=== PATIENT | female | born 1995 | race Hispanic/Latino ===

== ENCOUNTER 2021-02-04 22:23 | Inpatient (IN) | payer SELFPAY ==
[~2021-02-04] VITALS: Ht 142.2 cm; Wt 51.2 kg
[2021-02-05] MEDS ORDERED: ZOSYN 3.375GM+NS 50ML 50 ML IV ONE (00:07)
[2021-02-05] MEDS ORDERED: VANCOMYCIN 1GM+NS 250ML 250 ML IV ONE ×2 (00:07→19:28)
[2021-02-05] MEDS ORDERED: KETOROLAC TROMETHAMINE 30MG/ML ONE (00:08)
[2021-02-05] MEDS ORDERED: ACETAMINOPHEN 325 MG TAB ONE (00:08)
[2021-02-05 00:47] LABS: BASOPHILS % (AUTO) 0.3 % (0.0-5.0); EOSINOPHILS % (AUTO) 2.1 % (0.0-8.0); HEMATOCRIT 42.2 % (36-48); LYMPHOCYTES % (AUTO) 22.2 % (21.0-51.0); MEAN CORPUSCULAR HEMOGLOBIN 30.2 pg (27.0-33.0); MEAN CORPUSCULAR HGB CONC 34.8 g/dL (32.0-36.0); MEAN CORPUSCULAR VOLUME 86.8 fL (79-99); MONOCYTES % (AUTO) 7.4 % (3.0-13.0); NEUTROPHILS % (AUTO) 67.8 % (40.0-77.0); PLATELET COUNT (AUTO) 390 K/uL (130-400); RED BLOOD CELL COUNT(AUTO) 4.86 MIL/uL (4.00-5.50); RED CELL DISTRIBUTION WIDTH 11.7 % (11.0-15.5); WHITE BLOOD COUNT (AUTO) 10.3 K/uL (4.8-10.8)
[2021-02-05 00:48] LABS: APPEARANCE,URINE Clear (CLEAR); BILIRUBIN,URINE Negative (NEGATIVE); COLOR,URINE Yellow (YELLOW); GLUCOSE, URINE (UA) Negative (NEGATIVE); KETONES,URINE Negative (NEGATIVE); LEUKOCYTE ESTERASE ,URINE Negative (NEGATIVE); NITRATE,URINE Negative (NEGATIVE); OCCULT BLOOD,URINE Negative (NEGATIVE); PH,URINE 6.5 (5.0-8.0); PROTEIN,URINE Negative (NEGATIVE); UROBILINOGEN,URINE 0.2 mg/dL (0.2-1.0)
[2021-02-05 00:49] LABS: CREATININE 0.9 mg/dL (0.5-1.5); POTASSIUM 3.6 mmol/L (3.5-5.1)
[2021-02-05 00:51] LABS: HCG,QUAL RESULT NEGATIVE (NEGATIVE)
[2021-02-05 00:54] LABS: ALBUMIN 4.1 g/dL (3.5-5.0); BILIRUBIN,TOTAL 0.2 mg/dL (0.2-1.0); TOTAL PROTEIN, SERUM 8.8 g/dL (6.0-8.3)
[2021-02-05] MEDS ORDERED: MORPHINE SULFATE 4 MG/1ML SYG ONE (01:31)
[2021-02-05] MEDS ORDERED: ONDANSETRON HCL 4 MG/2 ML VIAL ONE (01:31)
[2021-02-05] MEDS ORDERED: ONDANSETRON HCL 4 MG/2 ML VIAL IV PRN (03:15)
[2021-02-05] MEDS ORDERED: VANCOMYCIN 1GM+NS 250ML 250 ML IV SCH ×2 (03:15→10:30)
[2021-02-05] MEDS ORDERED: ACETAMINOPHEN 325 MG TAB PO PRN (03:15)
[2021-02-05] MEDS ORDERED: LACTATED RINGERS 1000ML 1,000 ML IV ONE (04:07)
[2021-02-05] MEDS ORDERED: ZOSYN 3.375GM+NS 50ML 50 ML IV SCH (05:00)
[2021-02-05] MEDS: LACTATED RINGERS 1000ML 1,000 ML IV SCH ×3 (06:12→23:56)
[2021-02-05 06:15] VITALS: BP 105/61
[2021-02-05] MEDS: HYDROMORPHONE HCL 0.5 MG/0.5 ML ML IVP PRN ×3 (06:28→20:57)
[2021-02-05 07:46] VITALS: BP 104/48
[2021-02-05] MEDS ORDERED: VANCOMYCIN PROTOCOL PER PHARMACY IV PRN (10:30)
[2021-02-05 11:47] VITALS: BP 104/61
[2021-02-05] MEDS: CEFAZOLIN SODIUM 1 GM VIAL IVP SCH ×2 (15:46→20:51)
[2021-02-05 16:08] VITALS: BP 96/55
[2021-02-05] MEDS: HYDROCODONE/ACETAMINOPHEN 5/325 MG TAB PO PRN (19:51)
[2021-02-05 20:00] VITALS: BP 92/53
[2021-02-05] MEDS: VANCOMYCIN 1GM+NS 250ML 250 ML IV SCH (20:51)
[2021-02-06] VITALS (7 sets, daily range): BP systolic 95–101; BP diastolic 51–66
[2021-02-06] MEDS: HYDROMORPHONE HCL 0.5 MG/0.5 ML ML IVP PRN (03:02)
[2021-02-06] MEDS: CEFAZOLIN SODIUM 1 GM VIAL IVP SCH ×3 (05:28→21:03)
[2021-02-06 05:44] LABS: BASOPHILS % (AUTO) 0.3 % (0.0-5.0); HEMATOCRIT 38.9 % (36-48); MEAN CORPUSCULAR HGB CONC 33.2 g/dL (32.0-36.0); MEAN CORPUSCULAR VOLUME 87.4 fL (79-99); MONOCYTES % (AUTO) 6.2 % (3.0-13.0); NEUTROPHILS % (AUTO) 50.2 % (40.0-77.0); PLATELET COUNT (AUTO) 340 K/uL (130-400); RED BLOOD CELL COUNT(AUTO) 4.45 MIL/uL (4.00-5.50); RED CELL DISTRIBUTION WIDTH 11.9 % (11.0-15.5); WHITE BLOOD COUNT (AUTO) 6.8 K/uL (4.8-10.8)
[2021-02-06 06:05] LABS: CREATININE 0.7 mg/dL (0.5-1.5); CRP QUANTITATIVE 74.1 mg/L (0.00-9.0); POTASSIUM 4.1 mmol/L (3.5-5.1)
[2021-02-06 07:07] LABS: ERYTHROCYTE SEDIMENTATION RATE 2 MM/HR (0-20)
[2021-02-06] MEDS: VANCOMYCIN 1GM+NS 250ML 250 ML IV SCH ×3 (11:02→21:03)
[2021-02-06] MEDS: HYDROCODONE/ACETAMINOPHEN 5/325 MG TAB PO PRN ×3 (11:18→22:40)
[2021-02-06] MEDS: LACTATED RINGERS 1000ML 1,000 ML IV SCH ×2 (11:24→18:00)
[2021-02-07] VITALS (24 sets, daily range): BP systolic 95–126; BP diastolic 53–86
[2021-02-07] MEDS: LACTATED RINGERS 1000ML 1,000 ML IV SCH (04:44)
[2021-02-07] MEDS: VANCOMYCIN 1GM+NS 250ML 250 ML IV SCH (06:07)
[2021-02-07] MEDS: CEFAZOLIN SODIUM 1 GM VIAL IVP SCH ×3 (06:07→21:14)
[2021-02-07 06:18] LABS: BASOPHILS % (AUTO) 0.5 % (0.0-5.0); EOSINOPHILS % (AUTO) 5.1 % (0.0-8.0); HEMATOCRIT 35.7 % (36-48); LYMPHOCYTES % (AUTO) 51.2 % (21.0-51.0); MEAN CORPUSCULAR HEMOGLOBIN 29.9 pg (27.0-33.0); MEAN CORPUSCULAR HGB CONC 34.5 g/dL (32.0-36.0); MEAN CORPUSCULAR VOLUME 86.7 fL (79-99); MONOCYTES % (AUTO) 7.6 % (3.0-13.0); NEUTROPHILS % (AUTO) 35.4 % (40.0-77.0); PLATELET COUNT (AUTO) 336 K/uL (130-400); RED BLOOD CELL COUNT(AUTO) 4.12 MIL/uL (4.00-5.50); RED CELL DISTRIBUTION WIDTH 11.5 % (11.0-15.5); WHITE BLOOD COUNT (AUTO) 6.1 K/uL (4.8-10.8)
[2021-02-07 06:31] LABS: CREATININE 0.8 mg/dL (0.5-1.5); POTASSIUM 3.6 mmol/L (3.5-5.1)
[2021-02-07] MEDS ORDERED: ONDANSETRON HCL 4 MG/2 ML VIAL ONE (13:16)
[2021-02-07] MEDS ORDERED: LIDOCAINE PF 2% 5ML ABBOJECT ONE (13:16)
[2021-02-07] MEDS ORDERED: MIDAZOLAM HCL 1 MG/ML 2ML VIAL ONE (13:16)
[2021-02-07] MEDS ORDERED: FENTANYL CITRATE PF 50 MCG/1 ML 2ML VIAL ONE (13:17)
[2021-02-07] MEDS ORDERED: ROCURONIUM 10MG/1ML SYR 10 MG/ML ML ONE (13:17)
[2021-02-07] MEDS ORDERED: PROPOFOL 10 MG/ML 20ML VIAL IV ONE (13:17)
[2021-02-07] MEDS ORDERED: EPHEDRINE SULFATE 50 MG/ML AMPULE ONE (13:42)
[2021-02-07] MEDS ORDERED: KETOROLAC TROMETHAMINE 30MG/ML ONE (14:16)
[2021-02-07] MEDS ORDERED: MEPERIDINE-PF 25 MG/ML SYG ONE ×2 (14:16→14:28)
[2021-02-07] MEDS ORDERED: MORPHINE SULFATE 2 MG/ML 1ML SYG IVP SCH (15:30)
[2021-02-07] MEDS ORDERED: MORPHINE SULFATE 2 MG/ML 1ML SYG IM PRN (15:30)
[2021-02-07] MEDS: MORPHINE SULFATE 2 MG/ML 1ML SYG IV PRN (19:49)
[2021-02-08] MEDS: MORPHINE SULFATE 2 MG/ML 1ML SYG IV PRN ×3 (00:05→11:40)
[2021-02-08 00:08] VITALS: BP 106/55
[2021-02-08 03:50] VITALS: BP 99/65
[2021-02-08 05:29] LABS: BASOPHILS % (AUTO) 0.4 % (0.0-5.0); EOSINOPHILS % (AUTO) 4.1 % (0.0-8.0); HEMATOCRIT 37.7 % (36-48); LYMPHOCYTES % (AUTO) 38.7 % (21.0-51.0); MEAN CORPUSCULAR HEMOGLOBIN 28.7 pg (27.0-33.0); MEAN CORPUSCULAR HGB CONC 33.2 g/dL (32.0-36.0); MEAN CORPUSCULAR VOLUME 86.5 fL (79-99); MONOCYTES % (AUTO) 6.6 % (3.0-13.0); PLATELET COUNT (AUTO) 356 K/uL (130-400); RED BLOOD CELL COUNT(AUTO) 4.36 MIL/uL (4.00-5.50); RED CELL DISTRIBUTION WIDTH 11.4 % (11.0-15.5)
[2021-02-08 05:45] LABS: CREATININE 0.7 mg/dL (0.5-1.5); POTASSIUM 3.8 mmol/L (3.5-5.1)
[2021-02-08] MEDS: CEFAZOLIN SODIUM 1 GM VIAL IVP SCH ×2 (05:45→13:13)
[2021-02-08 07:00] VITALS: BP 97/55
[2021-02-08] MEDS ORDERED: CEFU500T67 PO (10:40)
[2021-02-08] MEDS ORDERED: IBUP-2077 PO (10:41)
[2021-02-08 11:30] VITALS: BP 99/65
[2021-02-08 16:00] VITALS: BP 99/56
== END 2021-02-08 16:20 | disposition home or self-care (01) | DRG 584 ==
LOC: EDH 22:23 → EDHIP 22:24 → 3BH 02-05 05:39
PROVIDERS: ADMIT Internal Medicine; ATTEND Internal Medicine
PROC: 0H9T0ZZ Drainage of Right Breast, Open Approach (ICD-10-PCS; principal; 2021-02-07 13:30)
DX: N61.1 Abscess of the breast and nipple (principal); L03.313 Cellulitis of chest wall; E11.9 Type 2 diabetes mellitus without complications; F17.210 Nicotine dependence, cigarettes, uncomplicated; B95.61 Methicillin susceptible Staphylococcus aureus infection as the cause of diseases classified elsewhere; Z60.2 Problems related to living alone
CPT/HCPCS: 36415; 76642; 80048; 80053; 80202; 81003; 81025; 83605; 84145; 85025; 85651; 86140; 87040; 87070; 87076; 87077; 87186; 87205; A4606; G0378; J0690; J1170; J1885; J2001; J2175; J2250; J2270; J2405; J2543; J2704; J3010; J3370; J3490; J7120